=== PATIENT | male | born 1955 ===

== ENCOUNTER 2020-02-25 13:56 | Outpatient (RCR) | payer OTHER ==
[~2020-02-25] VITALS: Ht 177.8 cm; Wt 63.5 kg
[2020-02-28] MEDS ORDERED: Lidocaine 4% Top Soln 50ml TOPIC ONE (10:00)
== END 2020-03-20 | disposition home or self-care (01) ==
LOC: WCC 13:56
DX: L97.312 Non-pressure chronic ulcer of right ankle with fat layer exposed (principal); D57.1 Sickle-cell disease without crisis; Z79.899 Other long term (current) drug therapy; Z90.89 Acquired absence of other organs
CPT/HCPCS: 11042

== ENCOUNTER → 2020-02-29 | Outpatient (CLI) | payer OTHER ==
--- NOTE | 2020-02-29 15:43 | Diagnostic Imaging Report ---
INDICATION: Ankle pain TECHNIQUE: Frontal, lateral, and oblique views of the right ankle COMPARISON: None FINDINGS: No acute fracture or dislocation. No osseous erosion. Joint spaces are maintained. There is a trace ankle joint effusion. Talar dome is unremarkable. Ankle mortise is preserved on these nonstress views. There is mild soft tissue thickening posterior to the ankle joint as well as the lateral malleolus. IMPRESSION: No fracture, dislocation, or osseous erosion.
--- NOTE | 2020-02-29 16:50 | Diagnostic Imaging Report ---
EXAM: ULTRASOUND Arterial Duplex LWR EXT [facility] CLINICAL HISTORY: Leg pain, suspected arterial stenosis. COMPARISON: None TECHNIQUE: Doppler examination including grayscale and spectral interrogation of the right lower extremity arteries FINDINGS: The right lower extremity arteries are patent throughout. There are appropriate triphasic waveforms of the right common femoral artery and superficial femoral artery, which demonstrate normal velocities. There are biphasic waveforms noted in the distal popliteal artery, the posterior tibial artery, the peroneal artery, and the intervertebral artery consistent with atherosclerotic disease. There are elevated peak systolic velocities in the posterior tibial artery and anterior tibial artery as well as the popliteal artery. IMPRESSION: FINDINGS CONSISTENT WITH DIFFUSE ATHEROSCLEROTIC DISEASE WITH LIKELY MILD TO MODERATE STENOSES IN THE DISTAL POPLITEAL ARTERY WELL THE ANTERIOR TIBIAL AND POSTERIOR TIBIAL ARTERIES.
== END | disposition home or self-care (01) ==
LOC: VAS 10:35
DX: M25.571 Pain in right ankle and joints of right foot (principal); M79.604 Pain in right leg; I77.1 Stricture of artery; I70.90 Unspecified atherosclerosis
CPT/HCPCS: 93926

== ENCOUNTER 2020-03-24 11:16 | Outpatient (RCR) | payer OTHER | END 2020-04-20 | disposition home or self-care (01) | LOC: WCC 11:16 | DX: L97.312 Non-pressure chronic ulcer of right ankle with fat layer exposed (principal); L97.521 Non-pressure chronic ulcer of other part of left foot limited to breakdown of skin; D57.1 Sickle-cell disease without crisis | CPT/HCPCS: 11042; 15271; Q4103 ==

== ENCOUNTER 2020-04-21 10:39 | Outpatient (RCR) | payer OTHER | END 2020-05-18 | disposition home or self-care (01) | LOC: WCC 10:39 | DX: L97.312 Non-pressure chronic ulcer of right ankle with fat layer exposed (principal); L97.521 Non-pressure chronic ulcer of other part of left foot limited to breakdown of skin; D57.1 Sickle-cell disease without crisis | CPT/HCPCS: 11042 ==